=== PATIENT | male | born 1965 ===

== ENCOUNTER 2023-06-15 11:32 | Inpatient (IN) | payer OTHER ==
[~2023-06-15] VITALS: Ht 167.6 cm; Wt 82.1 kg
[2023-06-21 18:43] LABS: HEMATOCRIT 46.6 % (39.0-48.0); HEMOGLOBIN 16.1 g/dL (13-16.00); MEAN CELL VOLUME 91.9 fL (80.0-100.00); MEAN CORPUSCULAR HEMOGLOBIN 31.7 pg (27.00-32.0); MEAN CORPUSCULAR HGB CONC 34.5 g/dl (32.0-36.0); PLATELET COUNT 191 K/uL (150-450); RED BLOOD COUNT 5.07 M/uL (4.00-6.00); RED CELL DISTRIBUTION WIDTH 13.1 % (11.5-14.5)
[2023-06-22 07:09] LABS: HEMATOCRIT 49.1 % (39.0-48.0); HEMOGLOBIN 16.4 g/dL (13-16.00); MEAN CELL VOLUME 93.3 fL (80.0-100.00); MEAN CORPUSCULAR HEMOGLOBIN 31.2 pg (27.00-32.0); MEAN CORPUSCULAR HGB CONC 33.5 g/dl (32.0-36.0); PLATELET COUNT 194 K/uL (150-450); RED BLOOD COUNT 5.26 M/uL (4.00-6.00); RED CELL DISTRIBUTION WIDTH 12.9 % (11.5-14.5)
[2023-06-22 07:15] LABS: ALBUMIN 3.6 gm/dL (3.4-5.0); CALCIUM 8.3 mg/dL (8.5-10.1); CREATININE SERUM 0.96 mg/dL (0.70-1.30); GFR 79.9; MAGNESIUM 2.1 mg/dL (1.8-2.4); POTASSIUM 4.3 mEq/L (3.5-5.1)
[2023-06-23 06:18] LABS: HEMOGLOBIN 15.2 g/dL (13-16.00); MEAN CELL VOLUME 91.5 fL (80.0-100.00); MEAN CORPUSCULAR HEMOGLOBIN 32.3 pg (27.00-32.0); MEAN CORPUSCULAR HGB CONC 35.3 g/dl (32.0-36.0); PLATELET COUNT 191 K/uL (150-450); RED CELL DISTRIBUTION WIDTH 13.1 % (11.5-14.5)
[2023-06-23 07:04] LABS: CALCIUM 8.1 mg/dL (8.5-10.1); CREATININE SERUM 0.87 mg/dL (0.70-1.30); GFR 89.51; MAGNESIUM 2.1 mg/dL (1.8-2.4); POTASSIUM 4.06 mEq/L (3.5-5.1)
[2023-06-23 07:39] LABS: PHOSPHOROUS 1.3 mg/dL (2.5-4.9)
== END 2023-06-24 10:51 | disposition home or self-care (01) | DRG 331 ==
LOC: SURH 06-21 08:41 → O/R 06-21 08:41 → SURG-SUITE 06-21 12:15 → SURH 06-21 17:38 → SURG-SUITE 06-21 19:45 → SURH 06-24 10:51
PROVIDERS: Internal Medicine Geriatric Medicine; ADMIT Colon & Rectal Surgery; ATTEND Colon & Rectal Surgery
PROC: 0DBP0ZZ Excision of Rectum, Open Approach (ICD-10-PCS; 2023-06-21)
PROC: 07BB0ZZ Excision of Mesenteric Lymphatic, Open Approach (ICD-10-PCS; 2023-06-21)
PROC: 07BC0ZZ Excision of Pelvis Lymphatic, Open Approach (ICD-10-PCS; 2023-06-21)
PROC: 0TN70ZZ Release Left Ureter, Open Approach (ICD-10-PCS; 2023-06-21)
PROC: 0TN60ZZ Release Right Ureter, Open Approach (ICD-10-PCS; 2023-06-21)
PROC: 0DJD8ZZ Inspection of Lower Intestinal Tract, Via Natural or Artificial Opening Endoscopic (ICD-10-PCS; 2023-06-21)
PROC: 0DTN0ZZ Resection of Sigmoid Colon, Open Approach (ICD-10-PCS; principal; 2023-06-21 19:45)
DX: C19 Malignant neoplasm of rectosigmoid junction (principal); I10 Essential (primary) hypertension